=== PATIENT | male | born 1980 | race Caucasian/White ===

== ENCOUNTER → 2016-05-30 | Outpatient (CLI) | payer SELFPAY ==
[~2016-05-30] MED LIST: AMIT25TA9 PO; CALC-250 PO; DCS100C PO; DIAZ2TAB2 PO; HYDR-3454 PO; MAGN400C PO; OMEP20CA6 PO; PNT40TEC PO; VITA1CAP21 PO
== END ==
LOC: ONC 09:50
PROVIDERS: ATTEND Nurse Practitioner Adult Health
DX: Z84.81 Family history of carrier of genetic disease (principal); Z80.0 Family history of malignant neoplasm of digestive organs; K21.9 Gastro-esophageal reflux disease without esophagitis; F32.9 Major depressive disorder, single episode, unspecified; F17.210 Nicotine dependence, cigarettes, uncomplicated
CPT/HCPCS: 99213

== ENCOUNTER 2016-06-18 08:30 | Outpatient (RCR) | payer SELFPAY | END 2016-09-16 | disposition home or self-care (01) | LOC: ONC 08:30 | PROVIDERS: ATTEND Internal Medicine Hematology & Oncology | DX: Z15.01 Genetic susceptibility to malignant neoplasm of breast (principal); Z15.03 Genetic susceptibility to malignant neoplasm of prostate; Z15.09 Genetic susceptibility to other malignant neoplasm; Z84.81 Family history of carrier of genetic disease; Z80.0 Family history of malignant neoplasm of digestive organs; K21.9 Gastro-esophageal reflux disease without esophagitis; F32.9 Major depressive disorder, single episode, unspecified; F17.210 Nicotine dependence, cigarettes, uncomplicated | CPT/HCPCS: 99213 ==